=== PATIENT | male | born 1965 | race Caucasian/White ===

== ENCOUNTER → 2018-01-23 | Outpatient (CLI) | payer OTHER ==
[2018-01-23 11:28] LABS: BASO % 0.1 %; BASO ABS # 0.01 K/uL (0-0.2); EOS % 0.9 %; EOS ABS # 0.06 K/uL (0-0.5); HEMOGLOBIN 14.3 g/dL (14.0-18.0); IG# 0.02 K/uL (0.00-0.02); LYMPH % 27.4 %; LYMPH ABS # 1.83 K/uL (1.2-3.4); MEAN CELL VOLUME 86.4 fL (80-100); MEAN CORPUSCULAR HEMOGLOBIN 29.4 pg (25-34); MEAN PLATELET VOLUME 11.6 fL (7.4-10.4); MONO % 13.3 %; MONO ABS # 0.89 K/uL (0.11-0.59); NEUT ABS # 3.87 K/uL (1.4-6.5); PLATELET COUNT 299 K/uL (130-400); RED CELL DISTRIBUTION WIDTH CV 13.7 % (11.5-14.5); RED CELL DISTRIBUTION WIDTH SD 43.4 fL (36.4-46.3); WHITE BLOOD COUNT 6.68 K/uL (4.8-10.8)
[2018-01-23 11:38] LABS: ALT/SGPT 72 U/L (12-78); AST/SGOT 52 U/L (15-37); BLOOD UREA NITROGEN 14 mg/dl (7-18); CALCIUM 9.3 mg/dl (8.5-10.1); CARBON DIOXIDE 26 mmol/L (21-32); CREATININE 0.84 mg/dl (0.60-1.40); GLUCOSE 78 mg/dl (70-99); POTASSIUM 4.4 mmol/L (3.5-5.1); SODIUM 137 mmol/L (136-145)
[2018-01-23 11:41] LABS: ALKALINE PHOSPHATASE 73 U/L (45-117); TOTAL PROTEIN 7.4 gm/dl (6.4-8.2)
== END | disposition home or self-care (01) ==
LOC: C.LABSPEC 11:10
PROVIDERS: ATTEND Physician Assistant
DX: Z04.8 Encounter for examination and observation for other specified reasons (principal)